=== PATIENT | male | born 1975 | race Caucasian/White ===

== ENCOUNTER 2016-07-16 00:02 | Emergency (ER) | payer OTHER ==
[~2016-07-16] VITALS: Ht 175.3 cm; Wt 88.5 kg
[~2016-07-16 00:02] MED LIST: CIPR500T4 PO; HYDR-3498 PO; IBUP-1542 PO; TAMS-14 PO
[2016-07-16 00:07] VITALS: Ht 175.3 cm; Wt 88.5 kg
[2016-07-16] MEDS ORDERED: ONDANSETRON 4 MG INJ IV STA (01:10)
[2016-07-16] MEDS ORDERED: morphine 4 MG/ML VIAL IV STA (01:10)
--- NOTE | 2016-07-16 01:19 | ERD ---
ER Documentation Chief Complaint Date/Time DATE: 07/16/16 TIME: 01:14 Chief Complaint left flank pain x 3 hours. hx of kidney stone HPI 40-year-old male presents with chief complaint of intermittent left-sided flank pain and left lower quadrant pain 3 hours. Describes pain as spasm like that waxes and wanes. Denies nausea, vomiting, diarrhea, fever, dysuria, and hematuria. States that he has a history of a kidney stone on the left side, states that last CT scan was last year. He says that the stone was never passed. He currently rates his pain a 8 out of 10 in severity, took one [place] at home without relief. ROS All systems reviewed and are negative except as per history of present illness. Medications Home Meds Active Scripts Ibuprofen* (Motrin*) 600 Mg Tab, 600 MG PO Q6, #30 TAB Prov:Aishwarya Lucia PA-C 07/16/16 Oxycodone HCl/Acetaminophen (Percocet 5-325 mg Tablet) 1 Each Tablet, 1 EACH PO Q6 for 5 Days, #15 TAB Prov:Aishwarya Lucia PA-C 07/16/16 Ciprofloxacin Hcl* (Ciprofloxacin Hcl*) 500 Mg Tablet, 500 MG PO BID for 7 Days , TAB Prov:JUAN MIGUEL SHIRLEY-C 07/14/15 Hydrocodone Bit-Acetaminophen* ([place]*) 5-325 Mg Tab, 1 TAB PO Q6 Y for PAIN, # 7 TAB Prov:JUAN MIGUEL SHIRLEY-C 07/14/15 Ibuprofen* (Motrin*) 600 Mg Tab, 600 MG PO Q6, #30 TAB Prov:JUAN MIGUEL SHIRLEY-C 07/14/15 Tamsulosin Hcl* (Flomax*) 0.4 Mg Cap.er.24h, 0.4 MG PO BID, #30 CAP Prov:JUAN MIGUEL SHIRLEY-C 07/14/15 Allergies Allergies: Coded Allergies: No Known Allergy (Unverified , 07/16/16) PMhx/Soc Medical and Surgical Hx: pt denies Surgical Hx History of Surgery: No Anesthesia Reaction: No Hx Neurological Disorder: No Hx Respiratory Disorders: No Hx Cardiac Disorders: No Hx Psychiatric Problems: No Hx Miscellaneous Medical Probl: Yes (kidney stones) Hx Alcohol Use: Yes (Occasional) Hx Substance Use: No Hx Tobacco Use: Yes Smoking Status: Current every day smoker Physical Exam Vitals Vital Signs Date Time Temp Pulse Resp B/P Pulse Ox O2 Delivery O2 Flow Rate FiO2 07/16/16 04:28 98.4 79 16 126/77 98 Room Air 07/16/16 00:07 97.5 85 20 133/84 98 Physical Exam GENERAL: Non-toxic. Mild distress secondary to pain. LUNGS: Clear to auscultation. No accessory muscle use. No wheezing, no crackles. No signs or symptoms of respiratory distress. HEART: Regular rate and rhythm. No murmurs, clicks, rubs or gallops. ABDOMEN: Soft, nontender and nondistended. Bowel sounds positive. No rebound or guarding. No gross peritoneal signs. No Gallardo or McBurney point tenderness. No gross masses. BACK: No midline tenderness, no costovertebral tenderness. EXTREMITIES: No peripheral cyanosis or edema. No focal pain or notable trauma. Full range of motion. Good capillary refill. NEURO: The patient moves all 4 extremities with 5/5 strength. Cranial nerves are grossly intact. Normal mental status for age. Good muscle tone. SKIN: There is no apparent rash, petechiae, erythema or swelling. Good skin turgor. Result Diagram: 07/16/16 0120 07/16/16 0120 Results 24 hrs Laboratory Tests Test 07/16/16 01:20 07/16/16 02:50 07/16/16 03:06 White Blood Count 10.010^3/ul Red Blood Count 4.1010^6/ul Hemoglobin 13.3g/dl Hematocrit 38.6% Mean Corpuscular Volume 94.1fl Mean Corpuscular Hemoglobin 32.4pg Mean Corpuscular Hemoglobin Concent 34.5g/dl Red Cell Distribution Width 13.6% Platelet Count 25972^3/UL Mean Platelet Volume 7.8fl Neutrophils % 45.9% Lymphocytes % 43.5% Monocytes % 7.7% Eosinophils % 2.4% Basophils % 0.3% Nucleated Red Blood Cells % 0.0/100WBC Neutrophils # 4.610^3/ul Lymphocytes # 4.410^3/ul Monocytes # 0.810^3/ul Eosinophils # 0.210^3/ul Basophils # 0.010^3/ul Nucleated Red Blood Cells # 0.010^3/ul Sodium Level 147mmol/L Potassium Level 4.1mmol/L Chloride Level 106mmol/L Carbon Dioxide Level 26mmol/L Anion Gap 19 Blood Urea Nitrogen 28mg/dl Creatinine 1.40mg/dl Glucose Level 91mg/dl Calcium Level 9.6mg/dl Total Bilirubin 0.4mg/dl Direct Bilirubin 0.00mg/dl Indirect Bilirubin 0.4mg/dl Aspartate Amino Transf (AST/SGOT) 36IU/L Alanine Aminotransferase (ALT/SGPT) 51IU/L Alkaline Phosphatase 64IU/L Total Protein 8.9g/dl Albumin 4.9g/dl Globulin 4.00g/dl Albumin/Globulin Ratio 1.22 Lipase 54U/L Urine Color LT. YELLOW Urine Clarity HAZY Urine pH 5.5 Urine Specific Bishop >=1.030 Urine Ketones NEGATIVE Urine Nitrite NEGATIVE Urine Bilirubin NEGATIVE Urine Urobilinogen 0.2 E.U./dL Urine Leukocyte Esterase NEGATIVE Urine Microscopic RBC >200/HPF Urine Microscopic WBC 0-2/HPF Urine Squamous Epithelial Cells FEW Urine Bacteria FEW Urine Hemoglobin 3+ Urine Glucose NEGATIVE% Urine Total Protein 1+ Bedside Urine pH (LAB) 6.0 Bedside Urine Protein (LAB) 2+ Bedside Urine Glucose (UA) Negative Bedside Urine Ketones (LAB) Negative Bedside Urine Blood 3+ Bedside Urine Nitrite (LAB) Negative Bedside Urine Leukocyte Esterase (L Negative Current Medications Medications (Trade) Dose Ordered Sig/Kash Route PRN Reason Start Time Stop Time Status Last Admin Dose Admin Morphine Sulfate (morphine) 4 mg ONCE STAT IV 07/16/16 01:10 07/16/16 01:14 DC 07/16/16 01:26 Ondansetron HCl (Zofran Inj) 4 mg ONCE STAT IV 07/16/16 01:10 07/16/16 01:14 DC 07/16/16 01:26 Ketorolac Tromethamine (Toradol) 30 mg ONCE STAT IV 07/16/16 02:02 07/16/16 02:03 DC 07/16/16 02:08 Hydromorphone HCl (Dilaudid) 1 mg ONCE STAT IV 07/16/16 02:27 07/16/16 02:28 DC 07/16/16 02:37 [place] [id number] Radiology Main Line: [phone] DIAGNOSTIC IMAGING REPORT Patient: SOREN SOTO : 1975 Age: 40 Sex: M MR #: [id number] DOS: 07/16/16 0110 Ordering MD: Aishwarya Lucia PA-C Location: [facility] Room/Bed: PROCEDURE: CT abdomen and pelvis without intravenous contrast. CLINICAL INDICATION: Flank pain. TECHNIQUE: CT of the abdomen/pelvis was performed utilizing axial images with reconstructions in sagittal and coronal planes. The administered radiation dose is CTDI 16.3 mGy, DLP 1093 mGy-cm. COMPARISON: 07/14/2015 FINDINGS: Visualized Chest: The visualized lung bases are clear. Abdomen: The spleen, pancreas, gallbladder,and adrenal glands are unremarkable. The liver is diffusely decreased in attenuation, compatible with hepatic steatosis. There is moderate left hydronephrosis and hydroureter secondary to a 5 x 9 mm calculus at the left ureterovesicle junction. This has moved distally compared to the prior examination. There are mild left perinephric and periureteral inflammatory changes. The right kidney is without hydronephrosis. Punctate nonobstructive calculi are noted within both kidneys. There is no evidence of bowel obstruction. The appendix is normal. No intra- abdominal free air is seen. There is no evidence of intra-abdominal adenopathy or free fluid. Some scattered atherosclerotic calcifications are noted in the aorta. Pelvis: There is no evidence of pelvic adenopathy or free fluid. The prostate and bladder are unremarkable. Osseous structures: Unremarkable. IMPRESSION: Moderate left-sided obstructive uropathy secondary to a 5.9 mm calculus at the left ureterovesicle junction. The calculus has moved distally compared to the prior exam. Bilateral nephrolithiasis. Hepatic steatosis. RPTAT: HIKT .Paulo Kemp MD, MD Date Time Electronically viewed and signed by .Paulo Kemp MD, on 07/16/2016 02:06 .T/ CC: Aishwarya Lucia PA-C Procedures/MDM Patient presents in mild distress secondary to pain, states that he has a history of a left-sided renal stone. After reviewing imaging, last CT scan was in July 2015 which showed a 6.5 mm stone in the left ureter. CT scan also showed evidence of diverticulosis without any diverticulitis. Patient now complains of left-sided flank pain and left lower quadrant pain, I explained that I be ordering another CT scan to assess for positioning of stone and to rule out obstruction, as well as to rule out diverticulitis. Routine labs were ordered along with a UA. Patient has no known drug allergies, 4 mg IV Zofran, 30 mg IV Toradol, 4 mg IV morphine ordered for relief of pain. Will reevaluate patient after treatment and workup. CBC: Mild anemia of 13.3, discussed with PCP CMP: LFTs within normal limits, no severe electrolyte imbalance, mildly elevated BUN and creatinine likely due to moderate obstructive uropathy. No ROB. Suitable for follow-up with urology Lipase: Within normal limits UA: No leukocyte esterase or nitrite, UTI or pyelonephritis unlikely CT scan abdomen pelvis without contrast (interpretation by radiologist): IMPRESSION: Moderate left-sided obstructive uropathy secondary to a 5.9 mm calculus at the left ureterovesicle junction. The calculus has moved distally compared to the prior exam. Bilateral nephrolithiasis. Hepatic steatosis. I explained the workup results to patient, instructed that he follow-up with urology in 1-2 days due to size of stone and moderate obstructive uropathy. However CMP shows only mildly elevated creatinine of 1.4 and BUN of 28, AK I has been ruled out and therefore patient is suitable for outpatient management, my supervising physician Dr Paul agrees to this plan.. Patient continued to complain of pain after initial Toradol and morphine, I then ordered 1 mg of Dilaudid. Patient tolerated medication well and reported relief of pain. To patient that I would be giving prescription for Percocet, which would be sedating and he should not drive or operate heavy machinery while taking it. At this time of low suspicion for pyelonephritis, diverticulitis, testicular torsion, bowel obstruction, AAA, cauda equina syndrome, epidural abscess, and acute kidney injury. Patient stable for discharge and outpatient management at this time. Advised to follow-up with his urologist in 1-2 days. Strict return precautions discussed. Departure Diagnosis: Primary Impression: Left flank pain Additional Impressions: Left lower quadrant pain Nephrolithiasis Obstructive uropathy Condition: Good Aishwarya Lucia PA-C July 16, 2016 01:19
[2016-07-16 01:33] LABS: ADD SCAN DIFF NO
[2016-07-16 01:34] LABS: BASOPHILS % 0.3 % (0.0-2.0); EOSINOPHILS # 0.2 10^3/ul (0.0-0.5); EOSINOPHILS % 2.4 % (0.0-7.0); HEMATOCRIT 38.6 % (42.0-52.0); HEMOGLOBIN 13.3 g/dl (14.0-18.0); LYMPHOCYTES # 4.4 10^3/ul (0.8-2.9); LYMPHOCYTES % 43.5 % (15.0-51.0); MEAN CORPUSCULAR HEMOGLOBIN 32.4 pg (29.0-33.0); MEAN CORPUSCULAR HGB CONC 34.5 g/dl (32.0-37.0); MEAN CORPUSCULAR VOLUME 94.1 fl (82.0-101.0); MEAN PLATELET VOLUME 7.8 fl (7.4-10.4); MONOCYTE # 0.8 10^3/ul (0.3-0.9); MONOCYTES % 7.7 % (0.0-11.0); NEUTROPHIL # 4.6 10^3/ul (1.6-7.5); NEUTROPHILS % 45.9 % (39.0-77.0); PLATELET COUNT 317 10^3/UL (140-415); RED CELL DISTRIBUTION WIDTH 13.6 % (11.5-14.5)
[2016-07-16 01:50] LABS: ALBUMIN 4.9 g/dl (3.3-4.9)
[2016-07-16 01:51] LABS: POTASSIUM 4.1 mmol/L (3.5-5.1)
[2016-07-16 01:53] LABS: ALBUMIN/GLOBULIN RATIO 1.22; BILIRUBIN,INDIRECT 0.4 mg/dl (0-1.1); BILIRUBIN,TOTAL 0.4 mg/dl (0.2-1.3); CREATININE 1.4 mg/dl (0.61-1.24); TOTAL PROTEIN 8.9 g/dl (6.1-8.1)
[2016-07-16 01:54] LABS: CALCIUM 9.6 mg/dl (8.4-10.2)
[2016-07-16] MEDS ORDERED: KETOROLAC 30 MG INJ IV STA (02:02)
--- NOTE | 2016-07-16 02:06 | RADRPT ---
PROCEDURE: CT abdomen and pelvis without intravenous contrast. CLINICAL INDICATION: Flank pain. TECHNIQUE: CT of the abdomen/pelvis was performed utilizing axial images with reconstructions in s agittal and coronal planes. The administered radiation dose is CTDI 16.3 mGy, DLP 1093 mGy-cm. COMPARISON: 07/14/2015 FINDINGS: Visualized Chest: The visualized lung bases are clear. Abdomen: The spleen, pancreas, gallbladder,and adrenal glands are unremarkable. The liver is diffusely dec reased in attenuation, compatible with hepatic steatosis. There is moderate left hydronephrosis and hydroureter secondary to a 5 x 9 mm calculus at the left u reterovesicle junction. This has moved distally compared to the prior examination. There are mild l eft perinephric and periureteral inflammatory changes. The right kidney is without hydronephrosis. Punctate nonobstructive calculi are noted within both kidneys. There is no evidence of bowel obstruction. The appendix is normal. No intra-abdominal free air is seen. There is no evidence of intra-abdominal adenopathy or free fluid. Some scattered atherosclerotic ca lcifications are noted in the aorta. Pelvis: There is no evidence of pelvic adenopathy or free fluid. The prostate and bladder are unremarkable. Osseous structures: Unremarkable. IMPRESSION: Moderate left-sided obstructive uropathy secondary to a 5.9 mm calculus at the left ureterovesicle j unction. The calculus has moved distally compared to the prior exam. Bilateral nephrolithiasis. Hepatic steatosis. RPTAT: HIKT .Paulo Kemp MD, MD Date Time Electronically viewed and signed by .Paulo Kemp MD, MD on 07/16/2016 02:06 .T/
[2016-07-16] MEDS ORDERED: HYDROmorphONE 1 MG/ML SYG IV STA (02:27)
[2016-07-16] MEDS ORDERED: IBUP-1542 PO (02:45)
[2016-07-16] MEDS ORDERED: OXYC-279 PO (02:45)
[2016-07-16 03:05] LABS: URINE BLOOD (Dip) POC 3+ (NEGATIVE)
[2016-07-16 03:14] LABS: ADD UMIC YES; URINE BILIRUBIN (Dip) NEGATIVE (NEGATIVE); URINE BLOOD (Dip) 3+ (NEGATIVE); URINE COLOR LT. YELLOW (YELLOW); URINE GLUCOSE (Dip) NEGATIVE (NEGATIVE); URINE KETONES (Dip) NEGATIVE (NEGATIVE); URINE LEUKOCYTE ESTERASE (Dip) NEGATIVE (NEGATIVE); URINE NITRITE (Dip) NEGATIVE (NEGATIVE); URINE TOTAL PROTEIN (Dip) 1+ (NEGATIVE); URINE UROBILINOGEN (Dip) 0.2 E.U./dL (0.1-1.0)
[2016-07-16 03:51] LABS: BACTERIA,URINE FEW; SQUAMOUS EPITHELIAL CELL,UR FEW; URINE RBCS >200 /HPF (0)
[2016-07-16 04:28] VITALS: BP 126/77; PULSE 79; RESP 16; TEMP 98.4
== END 2016-07-16 04:30 | disposition home or self-care (01) ==
LOC: FTE 00:02
DX: R10.32 Left lower quadrant pain (principal); N20.0 Calculus of kidney; N13.9 Obstructive and reflux uropathy, unspecified; F17.210 Nicotine dependence, cigarettes, uncomplicated
CPT/HCPCS: 36415; 74176; 80053; 81001; 83690; 85025; 96374; 96375; J1170; J1885; J2270; J2405; Z7502; 81003

== ENCOUNTER 2017-03-17 11:51 | Inpatient (IN) | END 2017-03-20 18:10 | disposition home or self-care (01) | DRG 669 ==

== ENCOUNTER 2018-06-10 05:52 | Day surgery (SDC) | payer OTHER ==
[2018-06-05 12:08] VITALS: BMI 29.6
[2018-06-10] VITALS (11 sets, daily range): BP systolic 109–131; BP diastolic 65–82; PULSE 64–90; RESP 12–19; Ht 175.3 cm; Wt 91.0 kg
[~2018-06-10] VITALS: Ht 175.3 cm; Wt 91.0 kg
[2018-06-10] MEDS ORDERED: LACTATED RINGER'S 1,000 ML IV SCH (06:00)
[2018-06-10] MEDS ORDERED: SOD CHLORIDE 0.9% 1,000 ML IV SCH (06:00)
[2018-06-10] MEDS ORDERED: CEFAZOLIN 2 GM/50 ML (PMX) 50 ML (FOR WT < 120 KG) IVPB ONE (06:00)
[2018-06-10] MEDS ORDERED: DESFLURANE 15 MIN ONE (07:00)
[2018-06-10] MEDS ORDERED: BUPIVACAINE 0.5%/EPI (SDV) 30 ML INJ ONE ×2 (07:02→09:26)
[2018-06-10] MEDS ORDERED: LIDOCAINE 1% (MPF) 30 ML INJ ONE (07:02)
[2018-06-10] MEDS ORDERED: POLYMYXIN/BACITRACIN 1L IRRIG ONE (07:02)
--- NOTE | 2018-06-10 07:28 | PREAC ---
Date/Time of Note Date/Time of Note DATE: 06/10/18 TIME: 07:20 Anesthesia Eval and Record Evaluation Time Pre-Procedure Interview DATE: 06/10/18 TIME: 07:20 Age 42 Sex male NPO: 8 hrs Preoperative diagnosis umbilical hernia, right inguinal hernia Planned procedure openumbjkilical hernia repair, lap right inguinal hernia repair Past Medical History Past Medical History: Includes Pulm: Smoking Hx (10 py), Sleep Apnea GI: Obesity Surgery & Anesthesia Issues No known issue Meds Anticoagulation: No Beta Sarah within 24 hr: No Reason Beta Sarah not given: Pt. not on B-Sarah Discontinued Scripts Ibuprofen* (Motrin*) 600 Mg Tab, 600 MG PO Q6, #30 TAB Prov:Aishwarya Lucia PA-C 07/16/16 Current Medications Lactated Ringer's 1,000 ml @ 25 mls/hr Q24H IV ; Start 06/10/18 at 06:00 Sodium Chloride 1,000 ml @ 25 mls/hr Q24H IV ; Start 06/10/18 at 06:00 Meds reviewed: Yes Allergies Coded Allergies: No Known Allergy (Unverified , 06/10/18) Allergies Reviewed: Yes Labs/Studies Labs Reviewed: Reviewed by anesthesiologist test: N/A Pre-procedure Exam Last vitals Vital Signs Date Temp Pulse Resp B/P (MAP) Pulse Ox O2 O2 Flow FiO2 Time Delivery Rate 06/10/18 98.0 75 16 117/81 97 Room Air 07:13 (93) Airway: Adequate mouth opening, Adequate thyromental dist Mallampati: Mallampati II Teeth: Normal Lung: Normal Heart: Normal ASA Physical Status ASA physical status: 2 Emergency: None Planned Anesthetic General/MAC: ETT Planned Pain Management Parenteral pain med Pre-operative Attestations Prior to commencing anesthesia and surgery, the patient was re-evaluated, there was verification of: *The patient's identity *The results of appropriate recent lab work and preoperative vital signs *The above evaluation not changing prior to induction *Anesthetic plan, risk benefits, alternative and complications discussed with patient/family; questions answered; patient/family understands, accepts and wishes to proceed. Benton Galicia M.D. Jun 10, 2018 07:27
[2018-06-10] MEDS ORDERED: IPRATROPIUM (NEB) 0.5 MG/2.5 ML AMP HHN PRN (07:30)
[2018-06-10] MEDS ORDERED: NEOSTIGMINE 3 MG/3 ML SYRINGE ONE (07:30)
[2018-06-10] MEDS ORDERED: FENTAnyl 50 MCG/ML VIAL IV PRN ×3 (07:30)
[2018-06-10] MEDS ORDERED: GLYCOPYRROLATE 0.4 MG INJ ONE (07:30)
[2018-06-10] MEDS ORDERED: EPHEDrine SULFATE 50 MG/5 ML SYG IV PRN (07:30)
[2018-06-10] MEDS ORDERED: hydrALAzine 20 MG INJ IV PRN (07:30)
[2018-06-10] MEDS ORDERED: LABETALOL HCL 20MG INJ IV PRN (07:30)
[2018-06-10] MEDS ORDERED: OXYCODONE/ACETAMINOPHEN (5/325) TAB PO PRN ×2 (07:30)
[2018-06-10] MEDS ORDERED: PROPOFOL 20 ML ONE (07:30)
[2018-06-10] MEDS ORDERED: TRIMETHOBENZAMIDE 100 MG/ML VIAL IM PRN (07:30)
[2018-06-10] MEDS ORDERED: MEPERIDINE 25 MG INJ IV PRN (07:30)
[2018-06-10] MEDS ORDERED: MIDAZOLAM 1 MG/ML 2 ML INJ IV PRN (07:30)
[2018-06-10] MEDS ORDERED: HYDROmorphONE 1 MG/5 ML IV SYRINGE IV PRN ×3 (07:30)
[2018-06-10] MEDS ORDERED: CEFAZOLIN 1 GM INJ ONE (07:30)
[2018-06-10] MEDS ORDERED: ALBUTEROL 0.083% (NEB) 2.5 MG/3 ML AMP HHN PRN (07:30)
[2018-06-10] MEDS ORDERED: ONDANSETRON 4 MG INJ IV PRN (07:30)
[2018-06-10] MEDS ORDERED: DIPHENHYDRAMINE 50 MG INJ IV PRN (07:30)
[2018-06-10] MEDS ORDERED: ROCURONIUM 50 MG INJ ONE (07:30)
[2018-06-10] MEDS ORDERED: MIDAZOLAM 1 MG/ML 2 ML INJ ONE (07:32)
[2018-06-10] MEDS ORDERED: DEXAMETHASONE 4 MG/ML 5 ML INJ ONE (07:32)
[2018-06-10] MEDS ORDERED: ONDANSETRON 4 MG INJ ONE (07:32)
[2018-06-10] MEDS ORDERED: FENTAnyl 50 MCG/ML VIAL ONE ×2 (07:32→08:27)
--- NOTE | 2018-06-10 07:32 | HPN ---
Date/Time of Note Date/Time of Note DATE: 06/10/18 TIME: 07:31 Interval H&P Admission Note Pt. seen H&P reviewed: No system changes ITALIA SPAIN Jun 10, 2018 07:32
[2018-06-10] MEDS ORDERED: ROPIVACAINE 0.5 % 30 ML VIAL ONE (07:36)
[2018-06-10] MEDS ORDERED: BUPIVACAINE 0.5% (SDV) 30 ML INJ ONE (08:00)
[2018-06-10] MEDS ORDERED: SUGAMMADEX SODIUM 200 MG/2 ML VIAL IV ONE (09:35)
--- NOTE | 2018-06-10 10:06 | SIPON ---
Date/Time of Note Date/Time of Note DATE: 06/10/18 TIME: 10:04 Operative Report Preoperative Diagnosis Right inguinal Hernia, Incarcerated umbilical hernia Postoperative Diagnosis same Operation/Procedure Performed 1. Laparoscopic TEP repair of right inguinal hernia with prolene mesh 2. Open repair of incarcerated umbilical hernia with mesh Surgeon see signature line operational assistant none Anesthesia: general Estimated blood loss: none Transfusion Required none Specimen none Grafts/Implants none Complications none ITALIA SPAIN Jun 10, 2018 10:06
--- NOTE | 2018-06-10 10:13 | OPR ---
Date/Time of Note Date/Time of Note DATE: 06/10/18 TIME: 10:06 Operative Report Preoperative Diagnosis Inguinal hernia, incarcerated umbilical hernia Postoperative Diagnosis Same Operation/Procedure Performed 1. Laparoscopic TEP Repair of right inguinal hernia with prolene mesh 2. Open repair of incarcerated umbilical hernia with mesh Surgeon see signature line [place] [facility] [place] none Anesthesia Type: general Estimated Blood Loss: none Transfusion none Specimen none Grafts/Implants none Complications none Pt Condition Post Procedure: stable Disposition: PACU Indications 42-year-old gentleman with a symptomatic umbilical as well as inguinal hernias patient is taken to the operating today for definitive repair. Procedure Description She was brought to the operating room and placed supine on the operating table. After IV sedation provided timeout was performed. Perioperative antibiotics had been given. Sequential compression devices were already in place prior to induction of anesthesia. Next the abdomen and the groin were prepped and draped after patient had completed the pain intubated and sedated. Once the prep was done in the standard usual fashion we proceeded by choosing our area of incision. A infraumbilical incision was chosen to the right of midline. Incision was carried down to the fascia level. The anterior fascia was opened. The prevertebral space was developed under direct visualization. 2 5 mm trochars were placed in a shelter between the umbilicus and the pubic area. Next once we had completely skeletonized of these matted cord of the hernia sac was identified. The sac was from the spermatic cord and nerve structures without any difficulty. A high ligation was performed using an Endoloop PDS. Next a Prolene mesh was used and that was tacked to the pubis and positioned in place without any difficulty. Once this part of the operation was done we proceeded by repairing the umbilical hernia. Patient had a 1.9 cm umbilical hernia. Fascia was circumferentially skeletonized and the fat was reduced. Again this was an incarcerated umbilical hernia. Once the hernia fat was reduced and we chose a mesh was about 5 cm in a circular fashion this was placed in the preperitoneal space. Next the fascia was closed in a vest overpants fashion with interrupted Ethibond sutures. Was irrigated and washed out. I had injected Marcaine with lidocaine 50-50 solution and the preperitoneal space. Was suctioned out. All incisions were infiltrated with anesthetic for perioperative and postoperative pain control. The skin incisions were next closed with Monocryl suture. The anterior fascia in the infraumbilical space was also closed with a Vicryl suture. At the end of the case patient tolerated procedure well there were no intraoperative comp occasions the sponge and instrument counts were reported to be correct by the nursing staff. All incisions were covered with Dermabond. From anesthesia extubated and transferred in stable condition to the recovery room. ITALIA SPAIN Jun 10, 2018 10:12
--- NOTE | 2018-06-10 10:14 | PDOCDIS ---
Discharge Instructions CONDITION [id number] Patient Condition: [id number] Good HOME CARE INSTRUCTIONS: [id number] Diet Instructions: [id number] Regular ACTIVITY: [id number] Activity Restrictions: [id number] Avoid heavy lifting (do not lift anything heavier than 30 pounds for 6-8 weeks.) [id number] Bathing Restrictions: [id number] Shower (In 2 days.) FOLLOW UP/APPOINTMENTS Follow-up Plan The office for an appointment for follow-up in 2 weeks. [phone] ITALIA SPAIN Jun 10, 2018 10:14
--- NOTE | 2018-06-10 10:15 | PAC ---
Date/Time of Note Date/Time of Note DATE: 06/10/18 TIME: 10:15 Post-Anesthesia Notes Post-Anesthesia Note Last documented vital signs Vital Signs Date Temp Pulse Resp B/P (MAP) Pulse Ox O2 O2 Flow FiO2 Time Delivery Rate 06/10/18 97.6 10:04 06/10/18 75 16 117/81 97 Room Air 07:13 (93) Activity: WNL Respiratory function: WNL Cardiovascular function: WNL Mental status: Baseline Pain reasonably controlled: Yes Hydration appropriate: Yes Nausea/Vomiting absent: Yes Benton Galicia M.D. Jun 10, 2018 10:15
--- NOTE | 2018-06-11 15:19 | RADRPT ---
Vent Rate: 69 bpm RR Interval: 0 msec CA Interval: 192 msec QRS Duration: 106 msec QT Interval: 370 msec QTC Interval: 396 msec P-R-T [place]: 40 - -24 - 53 degrees Normal sinus rhythm Normal ECG Electronically Signed By: Vishnu Prater
== END 2018-06-10 12:10 | disposition home or self-care (01) ==
LOC: SDS 05:52
PROVIDERS: ATTEND Surgery Surgical Oncology
DX: K42.0 Umbilical hernia with obstruction, without gangrene (principal)
CPT/HCPCS: 49653; 71045; 80053; 85025; 85610; 85730; 86850; 86900; 86901; 93005; J0690; J1100; J1170; J2250; J2405; J2710; J2795; J3010; Z7512; Z7610